=== PATIENT | female | born 1950 | race Caucasian/White ===

== ENCOUNTER → 2016-12-08 | Outpatient (CLI) | payer OTHER ==
[~2016-12-08] MED LIST: ACHD5005 PO; ALPR.25T PO; ASP325T PO; ASP81TEC PO; AXERT PO; BACL10TA PO; BUPR1PAT2 TD; DCS100C PO; DRON5CAP2 PO; ENXP40I.4 SC; ESTR1TAB13 PO; HYDR1TAB8 PO; IBUP-792 PO; IBUP800T26 PO; KETO10TA77 PO; LD5PT TOP; MORP10CA11 PO; MTP25TSR PO; NF-PREM2.5 PO; Non-Formulary Medication PO; OXYC-465 PO; OXYC1TAB16 PO; PROG100C6 PO; PROP60CA PO; RIZA10TA24 PO; SMTR50T PO; SUMA1TAB PO; TIZA2TAB3 PO; TIZA4TAB55 PO; TRAZ-144 PO; TRAZ50TA67 PO
--- OUTSIDE RECORDS SUMMARY | 2016-12-08 09:04 | XMS REPORT | Continuity of Care Document ---
Author Author [facility] Organization [facility] Address Unknown Phone Unavailable Care Team Providers [employer] Salesperson Name Role Phone JOAQUINA MAHMOOD MD PCP Insurance Providers Payer Name Policy Number Subscriber Name Relationship Work Comp [id number] Nikki Sarah 20 Self / Same As Patient [facility] [id number] Nikki Sarah 20 Self / Same As Patient Advance Directives Directive Response Recorded Date/Time Advance Directives No 10/26/14 12:33pm Health Care Power of Hourly Shift Manager No 10/26/14 12:33pm Organ Donor Yes 10/26/14 12:33pm Resuscitation Status Full Code 10/26/14 12:33pm Problems Medical Problems Problem Onset Date Status Fracture of phalanx of hand Unknown Active Medications Medication Dose Route Sig Days/Qty Instructions Order Date Discontinued Date Status Dronabinol 5 Mg PO TWICE A DAY 04/14/10 07/28/10 Discontinued Hydrocodone Bitartrate/Ibuprofen 1 Tab PO 5 TIMES DAILY 04/14/10 Active Ibuprofen 400 Mg PO BID PRN 04/14/10 04/28/14 Discontinued Estrogen,Con/M-Progest Acet 1 Each PO DAILY 04/14/10 10/30/10 Discontinued Propranolol HCl 1 Each PO BEDTIME 04/14/10 10/30/10 Discontinued Tizanidine Hcl 2 Mg PO BEDTIME 04/14/10 09/06/11 Discontinued Buprenorphine 10 Patch TD WED 07/23/11 04/28/14 Discontinued Ketorolac Tromethamine 10 Mg PO 09/06/11 09/06/11 Discontinued Sumatriptan Succ/Naproxen Sod 1 Each PO NEEDED 09/06/11 04/28/14 Discontinued Estrogen,Con/M-Progest Acet 1 Each PO BEDTIME PRN HOT FLASHES PRN HOT FLASHES 09/06/11 Active [Axert] 12.5 Mg PO NEEDED 09/06/11 04/28/14 Discontinued Tizanidine Hcl 2 Mg PO BEDTIME 09/06/11 04/28/14 Discontinued Ketorolac Tromethamine 10 Mg PO NEEDED 09/06/11 04/28/14 Discontinued Alprazolam 0.25 Mg PO TID PRN 09/08/11 04/28/14 Discontinued Metoprolol Succinate 25 Mg PO DAILY 09/08/11 04/28/14 Discontinued Aspirin 81 Mg PO DAILY 09/08/11 04/28/14 Discontinued Ibuprofen (Motrin) 800 Mg PO TWICE A DAY PRN PAIN 04/28/14 05/08/14 Discontinued Baclofen (Lioresal) 10 Mg PO BEDTIME 04/28/14 Active [Axert] 12.5 Mg PO NEEDED For HEADACHE PRN MIGRAINE 04/28/14 Discontinued Lidocaine 3 Each TOP DAILY PRN CERVICAL PAIN 04/30/14 05/08/14 Discontinued Docusate Sodium 100 Mg PO DAILY PRN constipation 30 Days 05/08/14 Discontinued Enoxaparin Sodium 40 Mg SC Q24H 30 Days 05/08/14 05/13/14 Discontinued Oxycodone Hcl/Acetaminophen 1 Each PO EVERY 4HRS PRN PAIN 30 Days 05/0810/26/14 Discontinued Sumatriptan Succinate 50 Mg PO DIRECTED PRN HEADACHE 30 Days 10/26/14 Discontinued [Non-Formulary Medication] 0 Ea PO BEDTIME PRN HOT FLASHES 05/08/14 Active Aspirin 325 Mg PO TWICE A DAY 60 Qty 05/13/14 Active Acetaminophen/Hydrocodone Bitart 1 Tab PO EVERY 4HRS PRN PAIN 50 Qty 10/26/14 Discontinued Trazodone Hcl 50 Mg PO BEDTIME 10/26/14 Active Oxycodone Hcl/Acetaminophen 1 Each PO EVERY 4HRS PRN PAIN 14 Qty 10/26/14 Discontinued Oxycodone Hcl/Acetaminophen 1 Each PO EVERY 4HRS PRN PAIN 30 Qty Active Social History Social History Problem Response Recorded Date/Time Alcohol Use Denies Use 10/26/2014 12:33pm Recreational Drug Use No 10/26/2014 12:33pm Recent Foreign Travel No 05/08/2014 3:22pm Recent Infectious Disease Exposure No 05/08/2014 3:22pm Hospitalization with Isolation Denies 05/14/2014 2:32pm Smoking Status Never a Smoker 10/26/2014 12:33pm Query Response Start Date Stop Date Smoking Status Never a Smoker Hospital Discharge Instructions No hospital discharge instructions. Plan of Care No plan of care. Functional Status No functional status results. Allergies, Adverse Reactions, Alerts Allergen Type Severity Reaction Status Last Updated No Known Drug Allergies Active 04/14/10 Immunizations No immunization records. Vital Signs Acute Vital Signs Vital Response Date/Time Temperature (Fahrenheit) 97.4 degrees F (97.6 - 99.5) Temperature (Calculated Celsius) 36.75522 degrees C (36.4 - 37.5) Pulse Rate (adult) 63 bpm (60 - 90) Respiratory Rate 20 bpm (12 - 24) O2 Sat by Pulse Oximetry 97 % (88 - 100) Blood Pressure 141/77 mm Hg Pain Pain Intensity 10 Height (Feet) 5 feet Height (Inches) 4 inches Height (Calculated Centimeters) 162.843573 cm Weight (Pounds) 126 pounds Weight (Calculated Kilograms) 57.370857 kilograms Calculated BMI 21.62 Results No known relevant diagnostic tests, laboratory data and/or discharge summary. Procedures No known history of procedures. Encounters Encounter Location Date/Time Departed Emergency Room [facility] 10/26/14 12:13pm Recent Diagnosis
--- NOTE | 2016-12-08 10:20 | Diagnostic Imaging Report ---
Examination: DEXA scan. Indication: osteopenia Technique: Bone mineral density estimated based on dual energy radiography over the lumbar spine and femoral necks, was performed. Findings: The lumbar spine T-score is -2.5. This is 14% decreased density measurements compared to 12/05/2011. T-score over the right femoral neck is -3.4. This is 19% decreased density measurement compared to 2011. The patient has total left hip replacement preventing measurements of the left femoral neck. IMPRESSION: Osteoporosis. Dictated by: Dictated on workstation # [id number]
--- NOTE | 2016-12-08 11:27 | Diagnostic Imaging Report ---
INDICATION: Followup scoliosis. Back pain. FINDINGS: There is scoliosis in the lower lumbar spine convex to the left side with Owens angle of 11. There is a rotational component in the lower lumbar spine. This limits evaluation of the vertebra with no definite anatomic abnormality seen. There is a mild compensatory curve convex to the right side in the lower thoracic spine and another curvature convex to the left in the upper thoracic spine. There is a left hip replacement. IMPRESSION: S-shaped scoliosis as described. There is rotational component in the lower lumbar spine limiting the evaluation. Dictated by: Dictated on workstation # [id number]
== END ==
LOC: RAD 08:58
DX: Z13.820 Encounter for screening for osteoporosis (principal); M81.0 Age-related osteoporosis without current pathological fracture; M41.03 Infantile idiopathic scoliosis, cervicothoracic region
CPT/HCPCS: 72081; 77080